=== PATIENT | female | born 1990 | race Caucasian/White ===

== ENCOUNTER 2017-07-26 14:53 | Emergency (ER) | payer OTHER ==
[~2017-07-26] VITALS: Ht 144.8 cm; Wt 63.5 kg
[~2017-07-26 14:53] MED LIST: CLINDAMYCIN HC300 MG PO; CYCLOBENZAPRINE10 MG PO; NORCO 5-325 TA1 EACH PO; TRAMADOL HCL50 MG PO
[2017-07-26] MEDS ORDERED: PROZAC20 MG PO (15:29)
--- OUTSIDE RECORDS SUMMARY | 2017-07-26 15:49 | XMS | Clinical Summary ---
Demographics + + + | Address | [address] | | | [place] [address] | + + + | Home Phone | | + + + | Preferred Language | Unknown | + + + | Marital Status | Single | + + + | Baptist Affiliation | CHR | + + + | Race | White | + + + | Ethnic Group | Not or | + + + Author + + + | Author | [facility] | + + + | Organization | [facility] | + + + | Address | Unknown | + + + | Phone | Unavailable | + + + Support + + +---------+ + | Name | Relationship | Address | Phone | + + +---------+ + | Mirtha Reyna | ECON | Unknown | | + + +---------+ + Care Team Providers + +------+ + | Care Director Safety Council Name | Role | Phone | + +------+ + | No Pcp Per Patient | PP | Unavailable | + +------+ + Source Comments JONY is fully live on both [facility] and [facility] InPatient.[facility] Allergies No Known Allergies Current Medications No known medications Active Problems + + + | Problem | Noted Date | + + + | Tylenol ingestion | 09/08/2010 | + + + | Depression | 09/08/2010 | + + + | Suicide attempt by acetaminophen overdose (HCC) | 09/08/2010 | + + + | HTN (hypertension) | 09/08/2010 | + + + + + | Overview: ICD10 | + + Social History + + + +--------+------+ | Tobacco Use | Types | Packs/Day | Years | Date | | | | | Used | | + + + +--------+------+ | Current Every Day | Cigarettes | 1.5 | 3 | | | Smoker | | | | | + + + +--------+------+ + + +---------+ + | Alcohol Use | Drinks/We | oz/Week | Comments | | | ek | | | + + +---------+ + | No | | | Rare beer | + + +---------+ + + + + | Sex Assigned at | Date Recorded | | | | + + + | Not on file | | + + + Last Filed Vital Signs + + + + | Vital Sign | Reading | Time Taken | + + + + | Blood Pressure | 108/60 | 09/10/2010 8:08 AM PDT | + + + + | Pulse | 66 | 09/10/2010 8:08 AM PDT | + + + + | Temperature | 37.3 C (99.1 F) | 09/10/2010 8:08 AM PDT | + + + + | Respiratory Rate | 16 | 09/10/2010 8:08 AM PDT | + + + + | Oxygen Saturation | 99% | 09/09/2010 6:15 PM PDT | + + + + | Inhaled Oxygen | - | - | | Concentration | | | + + + + | Weight | 65.9 kg (145 lb 4.5 | 09/08/2010 8:00 PM PDT | | | oz) | | + + + + | Height | 144.8 cm (4' 9") | 09/08/2010 8:00 PM PDT | + + + + | Body Mass Index | 31.44 | 09/08/2010 8:00 PM PDT | + + + + Plan of Treatment + + + + + | Health Maintenance | Due Date | Last Done | Comments | + + + + + | INFLUENZA VACCINE | | | | | (FLU SHOT) | 8 | | | + + + + + Results Not on filefrom Last 3 Months
--- OUTSIDE RECORDS SUMMARY | 2017-07-26 15:49 | XMS | Clinical Summary ---
Demographics + + + | Address | [address] | | | [place] [address] | + + + | Home Phone | | + + + | Preferred Language | Unknown | + + + | Marital Status | Single | + + + | Voodoo Affiliation | CHR | + + + [...] Team Providers + +------+ + | Care Veterinarian Name | Role | Phone | + +------+ + | No Pcp Per Patient | PP | Unavailable | + +------+ + Source Comments JONY is fully live on both [facility] and [facility] Allergies No Known Allergies Current Medications [...]
--- OUTSIDE RECORDS SUMMARY | 2017-07-26 15:49 | XMS | Clinical Summary ---
Demographics + + + | Address | [address] | | | [place] [address] | + + + | Home Phone | | + + + | Preferred Language | Unknown | + + + | Marital Status | Single | + + + | Denominational Affiliation | Unknown | + + + | Race | Unknown | + + + | Ethnic Group | Unknown | + + + Author + + + | Author | [facility] | + + + | Organization | [facility] | + + + | Address | Unknown | + + + | Phone | Unavailable | + + + Support + + +---------+ + | Name | Relationship | Address | Phone | + + +---------+ + | Ivory Zuñiga | ECON | Unknown | | + + +---------+ + | Zahida Ho | ECON | Unknown | | + + +---------+ + Care Team Providers + +------+ + | Care Signal Circuit Designer Name | Role | Phone | + +------+ + | Dee Villegas MD | PP | | + +------+ + Allergies + + + + + + | Active Allergy | Reactions | Severity | Noted | Comments | | | | | Date | | + + + + + + | Aspirin | Other (See Comments) | Medium | 06/28/19 | Her mom told her | | | | | 17 | she was allergic she | | | | | | is not sure what | | | | | | happens | + + + + + + Current Medications + + +-------+---------+------+------+-------+ | Prescription | Sig. | Disp. | Refills | Star | End | Statu | | | | | | t | Date | s | | | | | | Date | | | + + +-------+---------+------+------+-------+ | IRON, FERROUS | Take by mouth. | | | | | Activ | | GLUCONATE, PO | | | | | | e | + + +-------+---------+------+------+-------+ | MV-Min-Fe | Take by mouth. | | | | | Activ | | Fum-FA-DHA | | | | | | e | | ( 1 PO) | | | | | | | + + +-------+---------+------+------+-------+ | UNABLE TO FIND | Med Name: chewable | | | | | Activ | | | fiber | | | | | e | + + +-------+---------+------+------+-------+ Active Problems + + + | Problem | Noted Date | + + + | Rh negative state in antepartum period | 07/06/2015 | + + + + + | Overview: Per shawanda, sarabjitam given 05/25/15 | + + + + + | Pelvic pressure in female | 06/29/2015 | + + + | Previous section | 06/05/2015 | + + + + + | Overview: Desires . | | Consent for signed. EDC 08/03/15. | | Op note reviewed, LTCD with 2 layer closure. | | Elective induction with no dilation. | + + + + + | with care elsewhere | 06/05/2015 | + + + + + | Overview: Has records with her.. | + + Family History + +------+--------+ + | Relation | Name | Status | Comments | + +------+--------+ + | Father | | Alive | | + +------+--------+ + | Mother | | Alive | | + +------+--------+ + Social History + +-------+ +--------+------+ | Tobacco Use | Types | Packs/Day | Years | Date | | | | | Used | | + +-------+ +--------+------+ | Former Smoker | | | | | + +-------+ +--------+------+ + +---+---+---+ | Smokeless Tobacco: | | | | | Former User | | | | + +---+---+---+ + + +---------+ + | Alcohol Use | Drinks/We | oz/Week | Comments | | | ek | | | + + +---------+ + | No | | | | + + +---------+ + + + + | Sex Assigned at | Date Recorded | | | | + + + | Not on file | | + + + Last Filed Vital Signs + + + + | Vital Sign | Reading | Time Taken | + + + + | Blood Pressure | 128/58 | 07/18/2015 5:49 PM PDT | + + + + | Pulse | 77 | 07/18/2015 5:49 PM PDT | + + + + | Temperature | 37.1 C (98.8 F) | 07/18/2015 5:49 PM PDT | + + + + | Respiratory Rate | 18 | 07/18/2015 5:49 PM PDT | + + + + | Oxygen Saturation | - | - | + + + + | Inhaled Oxygen | - | - | | Concentration | | | + + + + | Weight | 82.1 kg (181 lb) | 07/18/2015 5:49 PM PDT | + + + + | Height | 144.8 cm (4' 9") | 07/18/2015 5:49 PM PDT | + + + + | Body Mass Index | 39.17 | 07/18/2015 5:49 PM PDT | + + + + Plan of Treatment + + + + + | Health Maintenance | Due Date | Last Done | Comments | + + + + + | Vaccine: HPV (1 of 3 | | | | | - Female 3 Dose | 3 | | | | Series) | | | | + + + + + | Vaccine: | | | | | Dtap/Tdap/Td (1 - | 1 | | | | Tdap) | | | | + + + + + | Cervical Cancer | | | | | Screening (Pap) | 3 | | | + + + + + | Vaccine: Influenza | | | | | (Season Ended) | 8 | | | + + + + + Results Not on filefrom Last 3 Months Insurance + +--------+ +------+-------+ + | Payer | Benefi | Subscriber | Type | Phone | Address | | | t Plan | ID | | | | | | / | | | | | | | Group | | | | | + +--------+ +------+-------+ + | UNITED HEALTHCARE | UNITED | xxxxxxxxx | | | | | | | | | | | | | HEALTH | | | | | | | CARE - | | | | | | | SLC | | | | | + +--------+ +------+-------+ + | MEDICAID | [place] | xxxxxxxx | | | [address] | | | N | | | | [place] | | | [place] | | | | [phone] | | | HUMAN RESOURCES VICE PRESIDENT | | | | | + +--------+ +------+-------+ + + +--------+ +--------+ + + | Guarantor Name | Accoun | Relation to | Date | Phone | Billing Address | | | t Type | Patient | of | | | | | | | | | | + +--------+ +--------+ + + | CHELY REYNA | Person | Self | [birth year] | Home: | [address] | | | al/Fam | | 1990 | [phone] | [place] [address] | | | vikram | | | [phone] | | + +--------+ +--------+ + +
--- OUTSIDE RECORDS SUMMARY | 2017-07-26 15:49 | XMS | Clinical Summary ---
Demographics + + + | Address | [address] | | | [place] [address] | + + + | Home Phone | | + + + | Preferred Language | Unknown | + + + | Marital Status | Single | + + + | Hinduism Affiliation | Unknown | + + + | Race | Unknown | + + + | Ethnic Group | Unknown | + + + Author + + + | Author | [facility] | | | and [place] | + + + | Organization | [facility] | | | and [place] | + + + | Address | Unknown | + + + | Phone | Unavailable | + + + Support + + + + + | Name | Relationship | Address | Phone | + + + + + | Mirtha Chow | ECON | [address] | | | | | [place] | | | | | [place] | | | | | [phone] | | + + + + + Care Team Providers + +------+ + | Care Credit Collection Specialist Name | Role | Phone | + +------+ + | Fuad Rich | PP | Unavailable | + +------+ + Allergies + + + + + + | Active Allergy | Reactions | Severity | Noted | Comments | | | | | Date | | + + + + + + | Aspirin | | | 10/02/19 | | | | | | 14 | | + + + + + + Current Medications + + +-------+---------+------+------+-------+ | Prescription | Sig. | Disp. | Refills | Star | End | Statu | | | | | | t | Date | s | | | | | | Date | | | + + +-------+---------+------+------+-------+ | lamoTRIgine | Take 25 mg by mouth | | | | | Activ | | (LAMICTAL) 25 MG | Daily. | | | | | e | | tablet | | | | | | | + + +-------+---------+------+------+-------+ Active Problems Not on file Social History + +-------+ +--------+------+ | Tobacco Use | Types | Packs/Day | Years | Date | | | | | Used | | + +-------+ +--------+------+ | Current Every Day | | | | | | Smoker | | | | | + +-------+ +--------+------+ + +---+---+---+ | Smokeless Tobacco: | | | | | Never Used | | | | + +---+---+---+ + + +---------+ + | Alcohol Use | Drinks/We | oz/Week | Comments | | | ek | | | + + +---------+ + | Yes | 1 Cans | 0.6 | Infrequently | | | of beer | | | + + +---------+ + + + + | Sex Assigned at | Date Recorded | | | | + + + | Not on file | | + + + Last Filed Vital Signs + + + + | Vital Sign | Reading | Time Taken | + + + + | Blood Pressure | 104/68 | 10/01/20131849 PDT | + + + + | Pulse | 84 | 10/01/20131849 PDT | + + + + | Temperature | 37.3 C (99.1 F) | 10/01/20131849 PDT | + + + + | Respiratory Rate | 18 | 10/01/20131849 PDT | + + + + | Oxygen Saturation | 97% | 10/01/20131849 PDT | + + + + | Inhaled Oxygen | - | - | | Concentration | | | + + + + | Weight | 68 kg (150 lb) | 10/01/20131849 PDT | + + + + | Height | 144.8 cm (4' 9") | 10/01/20131849 PDT | + + + + | Body Mass Index | 32.46 | 10/01/20131849 PDT | + + + + Plan [...] | Vaccine: | | | | | Pneumococcal 19-64 | 1 | | | | (PPSV23 only) Medium | | | | | Risk (1 of 1 - | | | | | PPSV23) | | | | + + + + + | CERVICAL CANCER | | | | | SCREENING (PAP EVERY | 3 | | | | 3 YEARS 21-64 ) | | | | + + + + + | Vaccine: Influenza | | | | | (Season Ended) | 8 | | | + + + + + Results Not on filefrom Last 3 Months Insurance + +--------+ +--------+ +---------+ | Payer | Benefi | Subscriber | Type | Phone | Address | | | t Plan | ID | | | | | | / | | | | | | | Group | | | | | + +--------+ +--------+ +---------+ | [employer] | MODA | xxxxxxxx | Medica | +1- | | | MEDICAID HMO | HEALTH | | id | [id number] | | | | MDCD | | | | | | | [place]MO [place] | | | | | + +--------+ +--------+ +---------+ + +--------+ +--------+ + + | Guarantor Name | Accoun | Relation to | Date | Phone | Billing Address | | | t Type | Patient | of | | | | | | | | | | + +--------+ +--------+ + + | CHELY REYNA | Person | Self | [birth year] | Home: | [address] | | | walker/Scar | | 1990 | [phone] | [place] | | | vikram | | | [phone] | [phone] | + +--------+ +--------+ + +
--- OUTSIDE RECORDS SUMMARY | 2017-07-26 15:50 | XMS | Clinical Summary ---
Demographics + + + | Address | [address] | | | [place] [address] | + + + | Home Phone | | + + + | Preferred Language | Unknown | + + + | Marital Status | Single | + + + | Christian Affiliation | Unknown | + + + | Race | Unknown | + + + | Ethnic Group | Unknown | + + + Author + + + | Author | [facility] | | | and [place] | + + + | Organization | [facility] | | | and [place] | [...] [place] | | | | | [phone] | | + + + + + Care Team Providers + +------+ + | Care Wood Grinder Name | Role | Phone | + [...] | [place] | | | [phone] | [phone] | + +--------+ +--------+ + +
--- OUTSIDE RECORDS SUMMARY | 2017-07-26 15:50 | XMS | Clinical Summary ---
Demographics + + + | Address | [address] | | | [place] [address] | + + + | Home Phone | | + + + | Preferred Language | Unknown | + + + | Marital Status | Single | + + + | Amish Affiliation | Unknown | + + + | Race | Unknown | + + + | Ethnic Group | Unknown | + + + Author + + + | Author | [facility] | + + + | Organization | [facility] | + + + | Address [...] Team Providers + +------+ + | Care Lamp Shade Assembler Name | Role | Phone | + [...] | | [place] | | | | [phone] | | | FILM PROCESS OPERATOR | | | | | + +--------+ [...] Self | [birth year] | Home: | [address] | | | al/Fam | | 1990 | [phone] | [place] [address] | | | vikram | | | [phone] | | + +--------+ +--------+ + +
== END 2017-07-26 17:35 | disposition home or self-care (01) ==
LOC: ED 14:53
PROC: 2W3KX1Z Immobilization of Left Finger using Splint (ICD-10-PCS; principal; 2017-07-26)
DX: S61.211A Laceration without foreign body of left index finger without damage to nail, initial encounter (principal); F17.200 Nicotine dependence, unspecified, uncomplicated; Z79.82 Long term (current) use of aspirin; Z79.899 Other long term (current) drug therapy; W49.04XA Ring or other jewelry causing external constriction, initial encounter
CPT/HCPCS: 29125; 73130; 99283

== ENCOUNTER 2018-12-10 01:36 | Emergency (ER) | payer SELFPAY ==
[~2018-12-10] VITALS: Ht 144.8 cm; Wt 63.5 kg
[~2018-12-10 01:36] MED LIST changes: +PROZAC20 MG PO
--- OUTSIDE RECORDS SUMMARY | 2018-12-10 01:38 | XMS ---
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 E[place] VISIT COUNT (12 MO.) 1 [facility] [place] TOTAL 1 NOTE: Visits indicate total known visits. ED/UCC VISIT TRACKING (12 MO.) 12/10/2018 01:36 [facility] [place] TYPE: Emergency COMPLAINT: - OD INPATIENT VISIT TRACKING (12 MO.) No inpatient visits to display in this time frame [email or web address]
--- NOTE | 2018-12-10 14:09 | EKG ---
[facility] [address] [facility] [place], [place] [address] Signed Normal sinus rhythm with sinus arrhythmia Possible Left atrial enlargement Incomplete right bundle branch block Borderline ECG No previous ECGs available Confirmed by LAVINIA ZHANG DO ([id number]) on 12/10/2018 2:09:16 PM Electronically Signed By: LAVINIA ZHANG DO 12/10/18 1409 PATIENT NAME: FRANTZ CHRISTIANSON Electrocardiogram DATE OF : [birth year] PHYSICIAN: LAVINIA ZHANG DO REPORT #: [id number] REPORT IS CONFIDENTIAL AND NOT TO BE RELEASED WITHOUT AUTHORIZATION
== END 2018-12-10 16:23 ==
LOC: ED 01:36
DX: R45.851 Suicidal ideations (principal); Z88.6 Allergy status to analgesic agent
CPT/HCPCS: 80053; 80176; 81001; 84443; 84703; 85025; 93005; 93010; 99285-25; G0480

== ENCOUNTER 2019-12-23 17:44 | Emergency (ER) | payer BC ==
[~2019-12-23] VITALS: Ht 144.8 cm; Wt 63.5 kg
[~2019-12-23 17:44] MED LIST changes: +LAMOTRIGINE25 MG PO; +PRAZOSIN HCL1 MG PO
--- OUTSIDE RECORDS SUMMARY | 2019-12-23 17:46 | XMS ---
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 Agustin VISIT COUNT (12 MO.) [address] TOTAL 4 NOTE: Visits indicate total known visits. ED/UCC VISIT TRACKING (12 MO.) 12/23/2019 17:45 [facility] TYPE: Emergency COMPLAINT: - VOMITING, NUMBNESS RIGHT SIDE,LOSS OF VISION 12/19/2019 13:05 [facility] [place] TYPE: Emergency DIAGNOSES: - Neurologic Problem - stroke like symptoms - Encounter for general adult medical examination without abnor 12/18/2019 19:20 [facility] [place] TYPE: Emergency DIAGNOSES: - Headache (Adult - New Onset Or New Symptoms) - Waiting Rm-ISO, headache - Unspecified abnormalities of gait and mobility 03/17/2019 19:[address] [facility] [place] TYPE: Emergency COMPLAINT: - MEDICAL CLEARANCE DIAGNOSES: - Encounter for other general examination - Post-traumatic stress disorder, unspecified - Encounter for other general examination - Suicidal ideations - Other usp (current) drug therapy - Allergy status to analgesic agent status INPATIENT VISIT TRACKING (12 MO.) No inpatient visits to display in this time frame [id number]
== END 2019-12-23 20:44 | disposition home or self-care (01) ==
LOC: ED 17:44
DX: R26.9 Unspecified abnormalities of gait and mobility (principal); R20.2 Paresthesia of skin; H53.9 Unspecified visual disturbance; Z88.8 Allergy status to other drugs, medicaments and biological substances
CPT/HCPCS: 80053; 81001; 85025; 96374; 99284-25; J2405; J7030

== ENCOUNTER 2021-08-13 07:00 | Day surgery (SDC) | payer BC ==
[~2021-08-13] VITALS: Ht 149.9 cm; Wt 70.0 kg
--- NOTE | ~2021-08-13 | OR ---
[facility] [address] [place], [place] [address] Draft DATE OF OPERATION: 08/13/2021 SURGEON: Dee Villegas MD PREOPERATIVE DIAGNOSIS: Recurrent right Bartholin abscess. POSTOPERATIVE DIAGNOSIS: Recurrent right Bartholin abscess. PROCEDURE: Removal of right Bartholin's gland. ANESTHESIA: Saddle block with IV sedation. ESTIMATED BLOOD LOSS: 50 mL. DRAINS: None. INDICATIONS AND FINDINGS: The patient is a 31-year-old female who developed recurrent right Bartholin cyst first noted a week ago. It was enlarged and a little uncomfortable but not tender and did not appear to be infected. However, after plans were made for removal of the gland this week because of her failed marsupialization she came in on Wednesday with excruciating pain and development of a right Bartholin abscess. On Wednesday, the edema and infection involved the entire right labia. She did undergo I and D that day and was started on Augmentin pending culture results. She has been improved since that time, but the Bartholin cyst remains. At the time of surgery, the Bartholin's gland was approximately 3 cm and cystic. There did not appear to be any residual purulent drainage. DESCRIPTION OF PROCEDURE: The patient was prepped and draped in the dorsal lithotomy position. The incision removal was made just inside the hymenal ring on the patient's right side. The vaginal mucosa was scored and the vaginal mucosa from the underlying cyst with a combination of blunt and sharp dissection. The Bartholin's gland extended into the pelvic sidewall short distance. The gland was serially dissected away from the underlying connections and after complete removal was sent to pathology. The base of PATIENT NAME: FRANTZ CHRISITANSON OPERATIVE REPORT DATE OF : [birth year] REPORT #: [id number] PHYSICIAN: DEE VILLEGAS MD PCP: SHANNAN JONES PA-C REPORT IS CONFIDENTIAL AND NOT TO BE RELEASED WITHOUT AUTHORIZATION [facility] [address] [place], [place] [address] Draft the incision was treated with cautery for some bleeding points. Sutures using 2-0 Vicryl were used to close the deep space. After closure of the deep space, the vaginal mucosa was closed with a running suture of 3-0 Vicryl. Good hemostasis was noted. All sponge and needle counts were correct. She tolerated the procedure well and was taken to the recovery room in good condition. MD KATIE Ugalde/SALLY /[id number] Copies: ~ PATIENT NAME: FRANTZ CHRISTIANSON OPERATIVE REPORT DATE OF : [birth year] REPORT #: [id number] PHYSICIAN: DEE VILLEGAS MD PCP: SHANNAN JONES PA-C REPORT IS CONFIDENTIAL AND NOT TO BE RELEASED WITHOUT AUTHORIZATION
[~2021-08-13 07:00] MED LIST changes: +FLUOXETINE HCL10 MG PO; +KETAMINE
[2021-08-13] MEDS ORDERED: ULTRAM50 MG PO (07:28)
[2021-08-13] MEDS ORDERED: AMOXICILLIN500 MG PO (07:28)
--- NOTE | 2021-08-13 13:24 | NUR ---
08/13/21 1324 Vesta Mccormick 1221 PT ARRIVED IN PACU SLEEPY WITH NO C/O'S. 1240 DR AT BEDSIDE TALKING TO PT. ALL QUESTIONS ANSWERED. 1300 STOOD AT SIDE OF BED WITH 2 PERSON ASSIST. WALKED AROUND BED WITH NO C/O'S. 1305 GETTING DRESSED. 1310 DC INSTRUCTIONS GIVEN. 1318 DC'D VIA W/C TO CAR.
--- NOTE | 2021-08-15 17:55 | PATH ---
[facility] [address] [place], [place] [address] Signed SPECIMEN(S): A RIGHT BARTHOLIN'S GLAND SPECIMEN SOURCE: A. RIGHT BARTHOLIN'S GLAND CLINICAL HISTORY: Removal of right Bartholin gland cyst. FINAL PATHOLOGIC DIAGNOSIS: Bartholin's gland cyst, right, excision: - Bartholin gland cyst. NAL:cml:C2NR MICROSCOPIC EXAMINATION: Histologic sections of all submitted blocks are examined by light microscopy. These findings, together with the gross examination, support the pathologic diagnosis. GROSS DESCRIPTION: The specimen, labeled "Yogesh, right Bartholin's Gland as per the requisition," is received in formalin and consists of a ragged, focally disrupted cyst (4.5 x 2.7 x 1.6 cm). The cyst is unilocular and has a wall thickness of 0.1-0.5 cm. The inner lining is herbert to pale yellow, smooth and glistening with no nodules or excrescences. Tab Card Press Operator sections are submitted in (A1A3). KD (under the direct supervision of a pathologist) The Gross Description was prepared using a voice recognition system. The report was reviewed for accuracy; however, sound-alike word errors, addition and/or deletions may occur. If there is any question about this report, please contact Client Services. PERFORMING LABORATORY: The technical component was performed by [facility], [address] [place] [id number] (CLIA# [id number]). Professional interpretation was performed by [facility], [address] [address] (CLIA# [id number]). Diagnostician: Sheila Landa MD Pathologist Electronically Signed 08/15/2021 PATIENT NAME: FRANTZ CHRISTIANSON PATHOLOGY DATE OF : [birth year] REPORT #: [id number] PHYSICIAN: [facility] PCP: SHANNAN JONES PA-C REPORT IS CONFIDENTIAL AND NOT TO BE RELEASED WITHOUT AUTHORIZATION [address] [address] Signed Copies: ~ PATIENT NAME: FRANTZ CHRISTIANSON PATHOLOGY DATE OF : [birth year] REPORT #: [id number] PHYSICIAN: [facility] PCP: SHANNAN JONES PA-C REPORT IS CONFIDENTIAL AND NOT TO BE RELEASED WITHOUT AUTHORIZATION
== END 2021-08-13 13:18 | disposition home or self-care (01) ==
LOC: DS 07:00
PROVIDERS: ATTEND Obstetrics & Gynecology
PROC: 0UBL0ZZ Excision of Vestibular Gland, Open Approach (ICD-10-PCS; principal; 2021-08-13 09:45)
DX: N75.0 Cyst of Bartholin's gland (principal); N75.1 Abscess of Bartholin's gland; F17.290 Nicotine dependence, other tobacco product, uncomplicated; F32.A Depression, unspecified; F41.9 Anxiety disorder, unspecified; E66.9 Obesity, unspecified; Z68.30 Body mass index [BMI] 30.0-30.9, adult; Z88.6 Allergy status to analgesic agent; Z79.82 Long term (current) use of aspirin
CPT/HCPCS: 36415; 84703; 85025; J0690; J1100; J1885; J2001; J2250; J2405; J2704; J2765; J7121